=== PATIENT | male | born 1975 | race Two or more races ===

== ENCOUNTER 2017-05-03 14:11 | Emergency (ER) | payer OTHER ==
--- OUTSIDE RECORDS SUMMARY | 2017-05-03 14:18 | XMS REPORT ---
:1975 External Reference #:[id number] [facility] Address [address] [address] Phone [phone] Care Team Providers Name Role Phone Argelia Keen III, MD Primary Care Physician Unavailable Payers Type Date Identification Numbers Payment Provider Subscriber Commercial Effective: Policy Number: [employer] Beasley 2015 [id number] Expires: 2015 PayID: [id number] [address] [place] [address] Commercial Effective: Policy Number: [employer] Beasley 2015 [id number] Group Number: [id number] [address] PayID: [id number] [place] [address] Problems Date Description Provider Status Onset: 03/30/2015 Vitamin D deficiency Abel Escobar M.D. 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 [employer] ETOH Use Occasionally consumes alcohol Socially Smoking Patient has never smoked Recreational Drug Use Denies Drug Use Daily Caffeine Consumes on average 3 cups of hot tea per day Exercise Type/Frequency Exercises regularly walks, occ softball, touch rugby Allergies, Adverse Reactions, Alerts Date Description Reaction Status Severity Comments 03/11/2015 NKDA active Medications Medication Date Status Form Strength Qnty SIG Indications Ordering Provider Vitamin D Active Capsules 1000Unit 1 by Unknown (Cholecalcifer 000 mouth ol) every day (not taking in summer) Vitamin D Hx Capsules 20591Tzwr 8caps Completed Abel (Ergocalcifero 016 - . 1 cap bella Escobar) by mouth M.D. 016 per week x 8 weeks No Active Hx Unknown Medications 016 - 016 Ibuprofen Hx Tablets 200mg as needed Unknown 000 - 016 Medications Administered in Office Medication Date Status Form Strength Qnty SIG Indications Ordering Provider Technetium TC Administered Injection Mark Alvarez 99M 0[address] [place] Tetrofosmin, Per Unit Dose Up To 40 Millicuries Technetium TC Administered Injection Marj Carcamo, 99M 016 [place] Tetrofosmin, Per Unit Dose Up To 40 Millicuries Immunizations CPT Code Status Date Vaccine Lot # [id number] Given 04/26/2015 Tdap - Tetanus/Diptheria/Acellular Pertussis 22447 Given 04/13/2015 Influenza Virus Vaccine, Quadrivalent, Split, [id number] Preservative Free Vital Signs Date Vital Result Comment 04/26/2017 Height 70.5 inches 5'10.50" Weight 163.00 lb BP Systolic 124 mmHg BP Diastolic 83 mmHg Respiratory Rate 16 /min Pain Level 2 BMI (Body Mass Index) 23.1 kg/m2 02/01/2017 Height 70.5 inches 5'10.50" Weight 168.00 lb BP Systolic 120 mmHg BP Diastolic 80 mmHg Respiratory Rate 16 /min Body Temperature 96.8 F Pain Level 0 BMI (Body Mass Index) 23.8 kg/m2 01/09/2017 Height 70.5 inches 5'10.50" Weight 168.00 lb BP Systolic 118 mmHg BP Diastolic 72 mmHg Respiratory Rate 20 /min Pain Level 8 BMI (Body Mass Index) 23.8 kg/m2 01/07/2017 Height 70.5 inches 5'10.50" Weight 168.00 lb BP Systolic 112 mmHg BP Diastolic 80 mmHg Respiratory Rate 18 /min Body Temperature 97.1 F Pain Level 7 BMI (Body Mass Index) 23.8 kg/m2 01/03/2017 Height 70.5 inches 5'10.50" Weight 168.00 lb Heart Rate 70 /min BP Systolic Sitting 112 mmHg BP Diastolic Sitting 76 mmHg O2 % BldC Oximetry 98 % BMI (Body Mass Index) 23.8 kg/m2 10/18/2016 Height 70.5 inches Weight 166.12 lb Heart Rate 64 /min BP Systolic 120 mmHg BP Diastolic 68 mmHg Body Temperature 98.1 F O2 % BldC Oximetry 98 % BMI (Body Mass Index) 23.5 kg/m2 Waist Circumference 32 09/05/2015 Height 70 inches 5'10" Weight 165.00 lb Heart Rate 72 /min BP Systolic Sitting 132 mmHg BP Diastolic Sitting 82 mmHg Respiratory Rate 17 /min BMI (Body Mass Index) 23.7 kg/m2 06/15/2015 Height 70 inches 5'10" Weight 167.00 lb Heart Rate 68 /min BP Systolic Sitting 126 mmHg BP Diastolic Sitting 84 mmHg Body Temperature 98.1 F O2 % BldC Oximetry 98 % BMI (Body Mass Index) 24.0 kg/m2 06/13/2015 Height 70 inches 5'10" Weight 166.00 lb Heart Rate 68 /min BP Systolic Sitting 124 mmHg BP Diastolic Sitting 84 mmHg Respiratory Rate 16 /min BMI (Body Mass Index) 23.8 kg/m2 05/13/2015 Height 70 inches 5'10" Weight 168.00 lb Heart Rate 77 /min BP Systolic Sitting 140 mmHg BP Diastolic Sitting 90 mmHg Body Temperature 97.9 F O2 % BldC Oximetry 97 % BMI (Body Mass Index) 24.1 kg/m2 04/18/2015 Height 70 inches 5'10" Weight 168.00 lb Heart Rate 78 /min BP Systolic Sitting 118 mmHg BP Diastolic Sitting 80 mmHg Body Temperature 98.8 F O2 % BldC Oximetry 96 % BMI (Body Mass Index) 24.1 kg/m2 04/13/2015 Height 70 inches 5'10" Weight 168.25 lb Heart Rate 70 /min BP Systolic Sitting 124 mmHg BP Diastolic Sitting 82 mmHg Body Temperature 97.8 F O2 % BldC Oximetry 97 % BMI (Body Mass Index) 24.1 kg/m2 03/30/2015 Height 71 inches 5'11" Weight 168.00 lb Heart Rate 88 /min BP Systolic Sitting 110 mmHg BP Diastolic Sitting 68 mmHg Body Temperature 97.1 F O2 % BldC Oximetry 98 % BMI (Body Mass Index) 23.4 kg/m2 03/11/2015 Height 71 inches 5'11" Weight 170.25 lb Heart Rate 88 /min BP Systolic Sitting 142 mmHg BP Diastolic Sitting 88 mmHg Body Temperature 98.3 F O2 % BldC Oximetry 98 % BMI (Body Mass Index) 23.7 kg/m2 Results Test Date Test Result H/L Range Note Lipid Profile (Trig/Chol/HDL) 10/01/2016 Triglycerides 60 mg/dL 1 Cholesterol 243 mg/dL 2 HDL Cholesterol 60.4 mg/dL 3 LDL Cholesterol 171 mg/dL 4 Laboratory test finding 10/01/2016 Glucose 92 mg/dL 70-100 5 CBC Auto Diff 08/07/2016 White Blood Count 3.7 10^3/uL 3.5-10.8 Red Blood Count 5.01 10^6/uL 4.0-5.4 Hemoglobin 14.3 g/dL 14.0-18.0 Hematocrit 43 % 42-52 Mean Corpuscular Volume 87 fL 80-94 Mean Corpuscular Hemoglobin 29 pg 27-31 Mean Corpuscular HGB Conc 33 g/dL 31-36 Red Cell Distribution Width 14 % 10.5-15 Platelet Count 136 10^3/uL Low 150-450 Mean Platelet Volume 9 um3 7.4-10.4 Abs Neutrophils 1.4 10^3/uL Low 1.5-7.7 Abs Lymphocytes 1.9 10^3/uL 1.0-4.8 Abs Monocytes 0.3 10^3/uL 0-0.8 Abs Eosinophils 0.1 10^3/uL 0-0.6 Abs Basophils 0 10^3/uL 0-0.2 Abs Nucleated RBC 0 10^3/uL Granulocyte % 37.9 % Low 38-83 Lymphocyte % 50.1 % High 25-47 Monocyte % 7.6 % 1-9 Eosinophil % 3.5 % 0-6 Basophil % 0.9 % 0-2 Nucleated Red Blood Cells % 0.1 Connective Tissue Panel 06/13/2015 Anti-Nuclear Antibody 0.3 U 6 Cyclic Citrullinated Peptide <15.6 U 7 Interpretation See Comment 8 Laboratory test finding 06/13/2015 Erythrocyte Sed Rate 11 mm/Hr 0-14 9 Hemoglobin A1c (Glyco HGB) 5.5 % Less than 6.0 10 Methylmalonic Acid Mma 0.18 nmol/mL <=0.40 11 Ssa/SSB Abs Igg 06/13/2015 SS-A/Ro Antibody <0.2 U 12 SS-B/La Antibody <0.2 U 13 Laboratory test finding 06/13/2015 C Reactive Protein < 1.00 mg/L &lt ; 5.00 14 Vitamin B12 328 pg/mL 180-914 15 Laboratory test finding 05/12/2015 Vitamin D Total 25(Oh) 40.3 ng/mL 30- 50 CBC Auto Diff 05/12/2015 White Blood Count 3.3 10^3/uL Low 3.5-10.8 16 Red Blood Count 5.35 10^6/uL 4.0-5.4 Hemoglobin 15.3 g/dL 14.0-18.0 Hematocrit 47 % 42-52 Mean Corpuscular Volume 87 fL 80-94 Mean Corpuscular Hemoglobin 29 pg 27-31 Mean Corpuscular HGB Conc 33 g/dL 31-36 Red Cell Distribution Width 14 % 10.5-15 Platelet Count 156 10^3/uL 150-450 Mean Platelet Volume 10 um3 7.4-10.4 Abs Neutrophils 1.1 10^3/uL Low 1.5-7.7 Abs Lymphocytes 1.6 10^3/uL 1.0-4.8 Abs Monocytes 0.2 10^3/uL 0-0.8 Abs Eosinophils 0.2 10^3/uL 0-0.6 Abs Basophils 0 10^3/uL 0-0.2 Abs Nucleated RBC 0 10^3/uL Granulocyte % 34.8 % Low 38-83 Lymphocyte % 50.2 % High 25-47 Monocyte % 7.0 % 1-9 Eosinophil % 6.9 % High 0-6 Basophil % 1.1 % 0-2 Nucleated Red Blood Cells % 0.1 Urinalysis Profile 05/12/2015 Urine Color Yellow Urine Appearance Clear Urine Specific [place] 1.008 Low 1.010-1.030 Urine pH 7.0 5-9 Urine Urobilinogen Negative Negative Urine Ketones Negative Negative Urine Protein Negative Negative Urine Leukocytes Negative Negative Urine Blood Negative Negative Urine Nitrite Negative Negative Urine Bilirubin Negative Negative Urine Glucose Negative Negative Comp Metabolic Panel 05/12/2015 Sodium 137 mmol/L 133-145 Potassium 4.1 mmol/L 3.5-5.0 Chloride 101 mmol/L 101-111 Co2 Carbon Dioxide 29 mmol/L 22-32 Anion Gap 7 mmol/L 2-11 Glucose 89 mg/dL 70-100 Blood Urea Nitrogen 10 mg/dL 6-24 Creatinine 1.13 mg/dL 0.67-1.17 BUN/Creatinine Ratio 8.8 8-20 Calcium 9.6 mg/dL 8.6-10.3 Total Protein 7.5 g/dL 6.4-8.9 Albumin 4.9 g/dL 3.2-5.2 Globulin 2.6 g/dL 2-4 Albumin/Globulin Ratio 1.9 1-3 Total Bilirubin 1.40 mg/dL High 0.2-1.0 Alkaline Phosphatase 65 U/L 34-104 Alt 7 U/L 7-52 Ast 13 U/L 13-39 Egfr Non- 73.0 >60 Egfr 93.9 >60 17 Lipid Profile (Trig/Chol/HDL) 03/16/2015 Triglycerides 45 mg/dL 18 Cholesterol 193 mg/dL 19 HDL Cholesterol 57.4 mg/dL 20 LDL Cholesterol 127 mg/dL 21 Laboratory test finding 03/16/2015 Vitamin D Total 25(Oh) 18.1 ng/mL Low 30-50 22 Rheumatoid Factor <15 IU/mL <15 23 Erythrocyte Sed Rate 12 mm/Hr 0-14 Samara (Antinuclear Antibodies) Negative Negative CBC Auto Diff 03/16/2015 White Blood Count 3.2 10^3/uL Low 3.5-10.8 Red Blood Count 5.01 10^6/uL 4.0-5.4 Hemoglobin 14.5 g/dL 14.0-18.0 Hematocrit 45 % 42-52 Mean Corpuscular Volume 89 fL 80-94 Mean Corpuscular Hemoglobin 29 pg 27-31 Mean Corpuscular HGB Conc 33 g/dL 31-36 Red Cell Distribution Width 14 % 10.5-15 Platelet Count 146 10^3/uL Low 150-450 Mean Platelet Volume 9 um3 7.4-10.4 Abs Neutrophils 1.5 10^3/uL 1.5-7.7 Abs Lymphocytes 1.4 10^3/uL 1.0-4.8 Abs Monocytes 0.2 10^3/uL 0-0.8 Abs Eosinophils 0.1 10^3/uL 0-0.6 Abs Basophils 0.1 10^3/uL 0-0.2 Abs Nucleated RBC 0.01 10^3/uL Granulocyte % 45.2 % 38-83 Lymphocyte % 42.1 % 25-47 Monocyte % 7.4 % 1-9 Eosinophil % 3.6 % 0-6 Basophil % 1.7 % 0-2 Nucleated Red Blood Cells % 0.2 Laboratory test finding 03/16/2015 TSH (Thyroid Stim Horm) 1.06 ?IU/mL 0.34-5.60 24 1 Desirable <150 Borderline high 150-199 High 200-499 Very High >500 2 Desirable <200 Borderline high 200-239 High >239 3 Low <40 Desirable: 40-60 High: >60 4 Desirable: <100 mg/dL Near Optimal: 100-129 mg/dL Borderline High: 130-159 mg/dL High: 160-189 mg/dL Very High: >189 mg/dL 5 FASTING 6 REFERENCE VALUE <=1.0 (Negative) 7 REFERENCE VALUE <20.0 (Negative) 8 Tests for antibodies to dsDNA and KIT antigens are not performed automatically unless the SAMARA result is > or= 3.0 U. Studies performed at [facility] indicate that positive SAMARA results <3.0 U are rarely accompanied by positive second order tests. Test Performed by: [facility] - [address] [address] Data Mining Analyst: Zackary Mcdermott II, M.D., Ph.D. 9 Copy Result to: ARGELIA KEEN ([id number]) 10 Therapeutic target for the treatment of diabetes Mellitus patients is <7% HBA1C, and in selective patients <6.0%.Please refer to [place] [employer] Association Diabetic care guidelines for further information. 11 Test Performed by: [facility] - [facility] [address] [place] [address] Data Mining Analyst: Zackary Mcdermott II, M.D., Ph.D. 12 REFERENCE VALUE <1.0 (Negative) 13 REFERENCE VALUE <1.0 (Negative) Test Performed by: [address] [address] Data Mining Analyst: Zackary Mcdermott II, M.D., Ph.D. 14 Acute inflammation: >10.00 15 Normal Range 180 to 914 Indeterminate Range 145 to 180 Deficient Range <145 16 Consistent with previous results on 03/16/15. 17 Because ethnic data is not always readily available, this report includes an eGFR for both -Americans and non- Americans. The National Kidney Disease Education Program (NKDEP) does not endorse the use of the MDRD equation for patients that are not between the ages of 18 and 70, are , have extremes of body size, muscle mass, or nutritional status, or are non- or non-. According to the National Kidney Foundation, irrespective of diagnosis, the stage of the disease is based on the level of kidney function: Stage Description GFR(mL/min/1.73 m(2)) 1 Kidney damage with normal or decreased GFR 90 2 Kidney damage with mild decrease in GFR 60-89 3 Moderate decrease in GFR 30-59 4 Severe decrease in GFR 15-29 5 Kidney failure <15 (or dialysis) 18 Desirable <150 Borderline high 150-199 High 200-499 Very High >500 19 Desirable <200 Borderline high 200-239 High >239 20 Low <40 Desirable: 40-60 High: >60 21 Desirable: <100 mg/dL Near Optimal: 100-129 mg/dL Borderline High: 130-159 mg/dL High: 160-189 mg/dL Very High: >189 mg/dL 22 FASTING 23 Test Performed by: [facility] - [address] [address] Data Mining Analyst: Zackary Mcdermott II, M.D., Ph.D. 24 FASTING Procedures Date CPT Code Description Status 10/18/2016 18729 Admin & Interp Of Health Risk Assessment w/ Patient Completed 07/15/2015 85703 Nerve Conduction 05-06 Studies Completed 07/15/2015 23241 Needle Electromyography Complete, Five Or More Muscles Completed Studied 04/22/2015 33519 Stress Test Completed 04/22/2015 84672 Myocardial Perfusion Imaging Tomographic (Spect) Completed Multiple Studies 04/22/2015 12692 Myocardial Perfusion Imaging Tomographic (Spect) Completed Multiple Studies 04/20/2015 51173 ECHO Transthorasic Realtime 2D W Doppler & Color Completed Flow Hosp Encounters Type Date Location Provider CPT E/M Dx Office Visit 02/01/2017 [place] [address] S83.242D 9:30a [facility] Office Visit 01/09/2017 [facility] Jovanni Randolph M.D. 42204 S83.242D 2:45p [facility] Office Visit 01/07/2017 [facility] Jovanni Randolph M.D. 09593 S83.242A 9:00a Of [facility] M25.562 Office Visit 01/03/2017 2:20p [facility] Internal Medicine Argelia Keen, [address]388 M25.562 - Paz Grijalva Office Visit 10/18/2016 10:00a [facility] Internal Medicine Argelia Keen, [address] Z00.00 - [place] E78.00 M25.641 Office Visit 09/05/2015 4:00p [place] [address] R20.8 Services Of [facility] Office Visit 06/15/2015 11:20a [facility] Internal Medicine - Argelia Keen [address]683 R20.2 Eliezer Grijalva Office Visit 06/13/2015 3:00p [place] [address] R20.2 Services Of [facility] G60.9 Office Visit 05/13/2015 10:00a [facility] Internal Medicine Abel Escobar M.D. 48686 D72.819 - [address] D69.6 R94.5 E55.9 R07.89 Office Visit 04/18/2015 2:00p [facility] Internal Medicine Abel Escobar M.D. 77910 R07.89 - [address] R94.31 J06.9 Office Visit 04/13/2015 9:40a [facility] Internal Medicine Abel Escobar M.D. 90702 Z00.00 - [address] R07.89 D72.819 D69.6 F41.1 E55.9 Z23 Office Visit 03/30/2015 3:40p [facility] Internal Medicine Abel Escobar M.D. 52307 D72.819 - [address] D69.6 E55.9 R53.83 L98.9 F41.1 Office Visit 03/11/2015 10:00a [facility] Internal Bassam Escobar M.D. 8[address]99 R53.83 - [address] E55.9 L98.9 F41.1 M25.60 E78.4 Z82.49 M25.50 E78.5 Plan of Care Future Appointment(s):10/23/2017 9:20 am - Argelia Keen M.D. at [facility] Internal Medicine [facility]
[2017-05-03 14:50] VITALS: BP 130/90
--- NOTE | 2017-05-03 16:11 | UC ---
FLU HPI - HPI Summary HPI Summary: 41 yo male c/o f/c/bodyaches/sore throat and congestion x 3 days - History of Current Complaint Chief Complaint: UCGeneralIllness Stated Complaint: WEAKNESS, THROAT IRRITATION Time Seen by Provider: 05/03/17 15:28 Hx Obtained From: Patient Onset/Duration: Lasting Days Severity Currently: Moderate Pain Intensity: 3 - Allergy/Home Medications Allergies/Adverse Reactions: Allergies Allergy/AdvReac Type Severity Reaction Status Date / Time No Known Allergies Allergy Verified 05/03/17 14:50 Home Medications: Home Medications Acetaminophen 325 mg PO Q6H PRN 05/03/17 [History Confirmed 05/03/17] PMH/Surg Hx/FS Hx/Imm Hx - Additional Past Medical History Additional PMH: none - Surgical History Surgical History: Yes Surgery Procedure, Year, and Place: right rotator cuff - acromion impingemt and release biceps;. left 5th finger. RIGHT THUMB - Family History Known Family History: Positive: Cardiac Disease - father had 3 [facility] an is now , mother had breast cancer - Social History Alcohol Use: Weekly Substance Use Type: None Smoking Status (MU): Never Smoked Tobacco Have You Smoked in the Last Year: No Review of Systems Constitutional: Fever, Chills, Fatigue Skin: Negative Eyes: Negative ENT: Sore Throat, Sinus Congestion Respiratory: Negative Cardiovascular: Negative Gastrointestinal: Negative Genitourinary: Negative Motor: Weakness Neurovascular: Negative Musculoskeletal: Myalgia Neurological: Negative Psychological: Negative All Other Systems Reviewed And Are Negative: Yes Physical Exam Triage Information Reviewed: Yes Appearance: No Pain Distress Vital Signs: Initial Vital Signs Temp 39.3 C 05/03/17 14:43 Pulse 103 05/03/17 14:43 Resp 18 05/03/17 14:43 BP 130/90 05/03/17 14:43 Pulse Ox 99 05/03/17 14:43 Eye Exam: Normal ENT: Positive: Pharyngeal erythema, Nasal congestion, TMs normal. Negative: Nasal drainage, TM bulging, TM dull, TM red, Tonsillar exudate Dental Exam: Normal Neck exam: Normal Neck: Positive: Enlarged Nodes @ - mild B/L cervical LAD Respiratory Exam: Normal Respiratory: Positive: Lungs clear Cardiovascular Exam: Normal Abdominal Exam: Normal Musculoskeletal Exam: Normal Neurological Exam: Normal Psychological Exam: Normal Skin Exam: Normal Flu Course/Dx - Course Course Of Treatment: Rapid flu and rapid strep neg- supportive tx for flu-like illness as directed - Differential Dx/Diagnosis Provider Diagnoses: flu-like illness Discharge - Discharge Plan Condition: Improved Disposition: HOME Prescriptions: Naproxen Sodium [Naproxen Sodium ER 500 MG TAB] 500 mg PO BID 10 Days #20 tab Pseudoephedrine HCL ER TAB* [Sudafed 12 Hour*] 120 mg PO BID 5 Days #10 tab.er Patient Education Materials: Viral Syndrome (ED) Referrals: Ernie Keen MD [Primary Care Provider] - Additional Instructions: as tolerated
== END 2017-05-03 16:15 | disposition home or self-care (01) ==
LOC: UCEAST 14:11
DX: J11.1 Influenza due to unidentified influenza virus with other respiratory manifestations (principal)
CPT/HCPCS: 87502; 87651; 99212; G0463